=== PATIENT | male | born 1975 | race Hispanic/Latino ===

== ENCOUNTER 2025-07-01 16:32 | Observation (INO) | payer OTHER ==
[~2025-07-01 16:32] MED LIST: Iopamidol-370 76% 500 ML MDV (1 ML CHARGE) ONE
[2025-07-01 16:52] LABS: #Basophils 0.04 10x3/uL (0.0-0.2); #Eosinophils 0.17 10x3/uL (0.0-0.7); #Monocytes 0.50 10x3/uL (0.11-0.59); #Neutrophils 4.92 10x3/uL (1.40-6.50); %Basophils 0.5 % (0.0-1.0); %Eosinophils 2.2 % (0.0-10.0); %Lymphocytes 27.7 % (21.0-51.0); %Monocytes 6.4 % (0.0-10.0); %Neutrophils 62.9 % (42.0-75.0); Hematocrit 43.5 % (42.0-52.0); Hemoglobin 15.4 g/dL (14.0-18.0); Mean Corpuscular Hemoglobin 29.6 pg (27.0-31.0); Mean Corpuscular Volume 83.5 fL (78.0-98.0); Platelet Count 205 10x3/uL (130-400); Red Blood Cell (RBC) Count 5.21 mill/uL (4.70-6.10); White Blood Cell (WBC) Count 7.81 10x3/uL (4.8-10.8)
[2025-07-01 17:08] LABS: Lipase 30 U/L (8-78)
[2025-07-01 17:10] LABS: ALT (SGPT) 29 U/L (Less than 45); AST (SGOT) 27 U/L (11-34); Albumin 4.6 g/dL (3.1-4.5); Alkaline Phosphatase 119 U/L (40-110); Anion Gap 13 mmol/L (10-20); BUN (Urea Nitrogen) 11 mg/dL (8.9-20.6); Bilirubin, Total 0.5 mg/dL (0.3-1.2); Calc. Creatinine Clearance 0 mL/min (70-130); Calcium 9.7 mg/dL (7.8-10.44); Carbon Dioxide 27 mmol/L (22-29); Chloride 102 mmol/L (98-107); Globulin 2.8 g/dL (2.4-3.5); Glucose 103 mg/dL (70-105); Potassium 4.0 mmol/L (3.5-5.1); Sodium 138 mmol/L (136-145)
[2025-07-01] MEDS ORDERED: hydrALAZINE 20 MG/ML VIAL SLOW IVP PRN (19:00)
[2025-07-01] MEDS: Acetaminophen 325 MG TAB PO SCH (23:51)
[2025-07-02 04:59] LABS: #Basophils 0.03 10x3/uL (0.0-0.2); #Eosinophils 0.09 10x3/uL (0.0-0.7); #Monocytes 0.41 10x3/uL (0.11-0.59); #Neutrophils 5.09 10x3/uL (1.40-6.50); %Basophils 0.4 % (0.0-1.0); %Eosinophils 1.2 % (0.0-10.0); %Lymphocytes 24.3 % (21.0-51.0); %Monocytes 5.5 % (0.0-10.0); %Neutrophils 68.5 % (42.0-75.0); Hematocrit 43.2 % (42.0-52.0); Hemoglobin 15.3 g/dL (14.0-18.0); Mean Corpuscular Hemoglobin 29.8 pg (27.0-31.0); Mean Corpuscular Volume 84.0 fL (78.0-98.0); Platelet Count 196 10x3/uL (130-400); Red Blood Cell (RBC) Count 5.14 mill/uL (4.70-6.10); White Blood Cell (WBC) Count 7.44 10x3/uL (4.8-10.8)
[2025-07-02 05:17] LABS: Anion Gap 14 mmol/L (10-20); BUN (Urea Nitrogen) 13 mg/dL (8.9-20.6); Calc. Creatinine Clearance 0 mL/min (70-130); Calcium 9.2 mg/dL (7.8-10.44); Carbon Dioxide 27 mmol/L (22-29); Chloride 100 mmol/L (98-107); Glucose 122 mg/dL (70-105); Potassium 4.1 mmol/L (3.5-5.1); Sodium 137 mmol/L (136-145)
[2025-07-02 06:11] VITALS: BMI 30.7
[2025-07-02] MEDS ORDERED: Iopamidol-370 76% 500 ML MDV (1 ML CHARGE) ONE (14:00)
[2025-07-02] MEDS ORDERED: GASTROGRAFIN 30 ML BOT ONE (14:00)
[2025-07-02 16:51] VITALS: BP 145/96; TEMP 97.8
[2025-07-04] MEDS ORDERED: FLU (Fluarix Triv) 25-26 (6MOS UP)/PF 45 MCG/0.5 ML Syringe IM ONE (09:00)
== END 2025-07-02 18:18 | disposition home or self-care (01) ==
LOC: ERS 16:32 → 2NO 18:02 → INTOOBSV 18:02
PROVIDERS: ADMIT Surgery; ATTEND Surgery
DX: T79.7XXA Traumatic subcutaneous emphysema, initial encounter (principal); E78.00 Pure hypercholesterolemia, unspecified; Z79.899 Other long term (current) drug therapy; V49.9XXA Car occupant (driver) (passenger) injured in unspecified traffic accident, initial encounter
CPT/HCPCS: 36415; 70450; 70498; 71045; 71260; 72125; 72170; 74177; 80048; 80053; 80307; 83690; 84484; 85025; 86850; 86900; 86901; 93005; G0378; G0390; Q9963; Q9967